=== PATIENT | female | born 1950 | race Caucasian/White ===

== ENCOUNTER 2019-03-02 11:09 | Emergency (ER) | payer OTHER ==
[~2019-03-02] VITALS: Ht 162.6 cm; Wt 54.4 kg
[2019-03-02] MEDS ORDERED: HYDROCHLOROTHIA25 M2 PO (11:32)
[2019-03-02] MEDS ORDERED: FLONASE 0.05%50 MCG NASAL (11:33)
[2019-03-02] MEDS ORDERED: LOTREL 5-20 MG1 EACH PO (11:33)
[2019-03-02] MEDS ORDERED: VALIUM5 MG PO (11:33)
[2019-03-02] MEDS ORDERED: NORCO 5-325 TA1 EAC1 PO (11:34)
[2019-03-02] MEDS ORDERED: ALBUTEROL2.5 MG/0.1 INH (11:34)
[2019-03-02] MEDS ORDERED: PREMARIN30 GM TOP (11:35)
[2019-03-02] MEDS ORDERED: SPIRIVA INH (11:35)
[2019-03-02] MEDS ORDERED: ADVAIR 250-501 EACH INH (11:35)
[2019-03-02] MEDS ORDERED: FISH OIL 1,001000 M2 PO (11:36)
[2019-03-02] MEDS ORDERED: UNICOMPLEX M TA1 TA1 PO (11:36)
[2019-03-02 12:22] VITALS: BP 150/63
== END 2019-03-02 12:20 | disposition home or self-care (01) ==
LOC: ER 11:09
DX: G89.29 Other chronic pain (principal); M54.2 Cervicalgia; M54.9 Dorsalgia, unspecified; R51 Headache; I10 Essential (primary) hypertension; E78.5 Hyperlipidemia, unspecified; Z88.6 Allergy status to analgesic agent; Z77.22 Contact with and (suspected) exposure to environmental tobacco smoke (acute) (chronic)